=== PATIENT | male | born 1985 | race Caucasian/White ===

== ENCOUNTER 2017-12-02 20:40 | Emergency (ER) | payer SELFPAY ==
[2017-12-02 20:45] VITALS: BP 123/82
--- NOTE | 2017-12-02 20:47 | ER Report ---
History and Physical Time Seen By MD: 20:46 HPI/ROS CHIEF COMPLAINT: Alcohol intoxication HISTORY OF PRESENT ILLNESS: Patient is a 32 yo M here accompanied by police for fci clearance and ETOH exposure. Patient was well appearing, moderately intoxicated at time of arrival. Police brought the patient in for ED evaluation due to ETOH on board. Denies trauma, current pain. He is HD stable at time of evaluation, VS stable. Denies fever, chills, OLSON, chest pain, SOB, NV, abdominal pain. REVIEW OF SYSTEMS: Constitutional: No fever, no chills. Eyes: No discharge. ENT: No sore throat. Cardiovascular: No chest pain, no palpitations. Respiratory: No cough, no shortness of breath. Gastrointestinal: No abdominal pain, no vomiting. Genitourinary: No hematuria. Musculoskeletal: No back pain. Skin: No rashes. Neurological: No headache, + mild-moderate etoh intoxication Allergies: Coded Allergies: No Known Drug Allergies (Unverified , 12/02/17) Home Meds Reported Medications Buprenorphine Hcl/Naloxone Hcl (SUBOXONE 8 MG-2 MG SL FILM) 1 Each Film, 1 EACH SL QDAY, FILM 12/02/17 Constitutional Physical Exam General Appearance: The patient is alert, has no immediate need for airway protection and no signs of toxicity. + etoh intoxication Eyes: Pupils equal and round no pallor or injection. ENT, Mouth: Mucous membranes are moist. Respiratory: There are no retractions, lungs are clear to auscultation. Cardiovascular: Regular rate and rhythm. Gastrointestinal: Abdomen is soft and non tender, no masses, bowel sounds normal. Neurological: No focal deficits, moderate intoxication with ETOH Skin: Warm and dry, no rashes. Musculoskeletal: Neck is supple non tender. Extremities are nontender, nonswollen and have full range of motion. DIFFERENTIAL DIAGNOSIS: After history and physical exam differential diagnosis was considered for etoh intoxication, polysubstance abuse, trauma Medical Decision Making ED Course/Re-evaluation ED Course Patient is a well appearing, moderately intoxicated 32 yo M here for fci clearance. Patient was HD stable with stable VS at time of evaluation. Patient was able to voice understanding of circumstances, AAO x 3, NAD. Denies injury, pain, headache, CP, SOB, NVD, abdominal pain. Patient was cleared to proceed with fci with police supervision. Decision to Disposition Date: Dec 02, 2017 Decision to Disposition Time: 20:54 Depart Departure Latest Vital Signs Impression: Primary Impression: Alcohol intoxication Condition: Improved [facility] Patient Instructions: Abuse of Alcohol (ED) CARMEL YOU DO Dec 02, 2017 20:47
[2017-12-02] MEDS ORDERED: BUPR1FIL7 SL (20:49)
== END 2017-12-02 21:12 ==
LOC: ER 20:51
DX: F10.120 Alcohol abuse with intoxication, uncomplicated (principal)
CPT/HCPCS: 99281

== ENCOUNTER 2017-12-31 15:44 | Emergency (ER) | payer SELFPAY ==
[~2017-12-31 15:44] MED LIST: BUPR1FIL7 SL
[2017-12-31 16:54] LABS: PLATELET COUNT, AUTOMATED 293 K/uL (150-450)
--- NOTE | 2017-12-31 17:06 | ER Report ---
History and Physical Time Seen By MD: 15:50 Hx. of Stated Complaint: PATIENT STATES THAT HE WANTS TO DETOX; STATES THAT HE CALLED [facility] ALREADY HPI/ROS CHIEF COMPLAINT: alcohol dependence, wants detox; HISTORY OF PRESENT ILLNESS: Pt has drank etoh steadily for past year, has not tried to quit or had w/d in past, now wants to tstop. He als has hx of heroin dependence, was on suboxone and has not had for months; over past week again began injecting heroin and snorting opiates. Has had multiple drinks today and snorted morphine. Denies SI/HI; motivated to quit. REVIEW OF SYSTEMS: Constitutional: No fever, no chills. Eyes: No discharge. ENT: No sore throat. Cardiovascular: No chest pain, no palpitations. Respiratory: No cough, no shortness of breath. Gastrointestinal: No abdominal pain, no vomiting. Genitourinary: No hematuria. Musculoskeletal: No back pain. Skin: No rashes. Neurological: No headache. Remainder of the 14 system rev: Yes Allergies: Coded Allergies: No Known Drug Allergies (Unverified , 12/02/17) Home Meds Reported Medications Lisinopril (LISINOPRIL) 10 Mg Tablet, 10 MG PO QDAY, TAB 01/01/18 Buprenorphine Hcl/Naloxone Hcl (SUBOXONE 8 MG-2 MG SL FILM) 1 Each Film, 1 EACH SL QDAY, FILM 12/02/17 Reviewed Nurses Notes: Yes Hx Substance Use Disorder: Yes (HEROIN) Hx Alcohol Use: Yes (ALCOHOLISM) Constitutional Vital Sign - Last 24 Hours 12/31/17 12/31/17 12/31/17 12/31/17 15:52 16:00 16:07 16:14 Temp 97.7 Pulse 76 68 Resp 18 B/P (MAP) 131/81 (98) 131/95 (107) 131/81 Pulse Ox 95 96 O2 Delivery Room Air 12/31/17 12/31/17 12/31/17 12/31/17 16:30 17:00 17:14 17:30 Pulse ??? B/P (MAP) ???/??? (166) ???/??? (1664) ???/??? (1664) 12/31/17 12/31/17 12/31/17 12/31/17 17:44 18:14 18:44 19:14 Pulse ? Physical Exam General Appearance: The patient is alert, has no immediate need for airway protection and no signs of toxicity. Eyes: Pupils equal and round no pallor or injection. ENT, Mouth: Mucous membranes are moist. Respiratory: There are no retractions, lungs are clear to auscultation. Cardiovascular: Regular rate and rhythm, no m/r/g Gastrointestinal: Abdomen is soft and non tender, no masses, bowel sounds normal. Neurological: alert, oriented, cooperative Skin: Warm and dry, no rashes. Musculoskeletal: Neck is supple non tender. Extremities are nontender, nonswollen and have full range of motion. DIFFERENTIAL DIAGNOSIS: After history and physical exam differential diagnosis was considered for intoxication, withdrawal, suicidal, sepsis, or other emergent etiology. Medical Decision Making Data Points Result Diagram: 12/31/17 1636 12/31/17 1636 Laboratory Hematology Test 12/31/17 15:52 12/31/17 16:36 Urine Color Straw Urine Clarity Clear Urine pH 6.0 pH (4.8-9.5) Urine Specific [place] 1.004 Urine Protein Negative mg/dL (NEGATIVE) Urine Glucose (UA) Negative mg/dL (NEGATIVE) Urine Ketones Negative mg/dL (NEGATIVE) Urine Blood Negative (NEGATIVE) Urine Nitrite Negative (NEGATIVE) Urine Bilirubin Negative (NEGATIVE) Urine Urobilinogen Negative mg/dL (0.2-1.9) Urine Leukocyte Esterase Negative (NEGATIVE) Urine RBC None /HPF (0-2/HPF) Urine WBC None /HPF (0-5/HPF) Urine Squamous Epithelial Cells None /LPF (</=FEW) Urine Bacteria Negative /HPF (NONE-FEW) Urine Mucus None /HPF (NONE-FEW) Urine Opiates Screen Positive Urine Barbiturates Screen Negative Ur Tricyclic Antidepressants Screen Negative Urine Phencyclidine Screen Negative Urine Amphetamines Screen Negative Urine Benzodiazepines Screen Negative Urine Cocaine Screen Negative Urine Cannabinoids Screen Negative Red Blood Count 5.24 M/uL (4.00-5.60) Mean Corpuscular Volume 88.6 fL (80.0-96.0) Mean Corpuscular Hemoglobin 31.7 pg (26.0-33.0) Mean Corpuscular Hemoglobin Concent 35.7 g/dL (32.0-36.0) Red Cell Distribution Width 13.1 % (11.5-14.5) Mean Platelet Volume 8.7 fL (7.2-11.1) Neutrophils (%) (Auto) 53.6 % (39.4-72.5) Lymphocytes (%) (Auto) 36.9 % (17.6-49.6) Monocytes (%) (Auto) 8.1 % (4.1-12.4) Eosinophils (%) (Auto) 0.6 % (0.4-6.7) Basophils (%) (Auto) 0.8 % (0.3-1.4) Nucleated RBC Relative Count (auto) 0.0 /100WBC Neutrophils # (Auto) 6.8 K/uL (2.0-7.4) Lymphocytes # (Auto) 4.7 K/uL (1.3-3.6) Monocytes # (Auto) 1.0 K/uL (0.3-1.0) Eosinophils # (Auto) 0.1 K/uL (0.0-0.5) Basophils # (Auto) 0.1 K/uL (0.0-0.1) Nucleated RBC Absolute Count (auto) 0.01 K/uL Sodium Level 142 mmol/L (137-145) Potassium Level 3.6 mmol/L (3.5-5.0) Chloride Level 107 mmol/L (98-107) Carbon Dioxide Level 20 mmol/L (22-30) Blood Urea Nitrogen 9 mg/dl (9-21) Creatinine 0.70 mg/dl (0.66-1.25) Glomerular Filtration Rate Calc > 60.0 Random Glucose 124 mg/dl (75-110) Calcium Level 8.6 mg/dl (8.4-10.2) Total Bilirubin 0.2 mg/dl (0.2-1.3) Aspartate Amino Transf (AST/SGOT) 135 U/L (0-35) Alanine Aminotransferase (ALT/SGPT) 273 U/L (0-56) Alkaline Phosphatase 89 U/L (0-126) Total Protein 7.8 g/dl (6.3-8.2) Albumin 4.4 g/dl (3.5-5.0) Salicylates Level < 10 mg/L Salicylate Last Dose Date unk Acetaminophen Level < 10 ug/ml Serum Alcohol 158 mg/dl HIV (1&2) Antibody Negative (NEGATIVE) Chemistry Test 12/31/17 15:52 12/31/17 16:36 Urine Color Straw Urine Clarity Clear Urine pH 6.0 pH (4.8-9.5) Urine Specific [place] 1.004 Urine Protein Negative mg/dL (NEGATIVE) Urine Glucose (UA) Negative mg/dL (NEGATIVE) Urine Ketones Negative mg/dL (NEGATIVE) Urine Blood Negative (NEGATIVE) Urine Nitrite Negative (NEGATIVE) Urine Bilirubin Negative (NEGATIVE) Urine Urobilinogen Negative mg/dL (0.2-1.9) Urine Leukocyte Esterase Negative (NEGATIVE) Urine RBC None /HPF (0-2/HPF) Urine WBC None /HPF (0-5/HPF) Urine Squamous Epithelial Cells None /LPF (</=FEW) Urine Bacteria Negative /HPF (NONE-FEW) Urine Mucus None /HPF (NONE-FEW) Urine Opiates Screen Positive Urine Barbiturates Screen Negative Ur Tricyclic Antidepressants Screen Negative Urine Phencyclidine Screen Negative Urine Amphetamines Screen Negative Urine Benzodiazepines Screen Negative Urine Cocaine Screen Negative Urine Cannabinoids Screen Negative White Blood Count 12.6 k/uL (4.5-11.0) Red Blood Count 5.24 M/uL (4.00-5.60) Hemoglobin 16.6 g/dL (14.0-18.0) Hematocrit 46.5 % (42.0-52.0) Mean Corpuscular Volume 88.6 fL (80.0-96.0) Mean Corpuscular Hemoglobin 31.7 pg (26.0-33.0) Mean Corpuscular Hemoglobin Concent 35.7 g/dL (32.0-36.0) Red Cell Distribution Width 13.1 % (11.5-14.5) Platelet Count 293 K/uL (150-450) Mean Platelet Volume 8.7 fL (7.2-11.1) Neutrophils (%) (Auto) 53.6 % (39.4-72.5) Lymphocytes (%) (Auto) 36.9 % (17.6-49.6) Monocytes (%) (Auto) 8.1 % (4.1-12.4) Eosinophils (%) (Auto) 0.6 % (0.4-6.7) Basophils (%) (Auto) 0.8 % (0.3-1.4) Nucleated RBC Relative Count (auto) 0.0 /100WBC Neutrophils # (Auto) 6.8 K/uL (2.0-7.4) Lymphocytes # (Auto) 4.7 K/uL (1.3-3.6) Monocytes # (Auto) 1.0 K/uL (0.3-1.0) Eosinophils # (Auto) 0.1 K/uL (0.0-0.5) Basophils # (Auto) 0.1 K/uL (0.0-0.1) Nucleated RBC Absolute Count (auto) 0.01 K/uL Glomerular Filtration Rate Calc > 60.0 Calcium Level 8.6 mg/dl (8.4-10.2) Total Bilirubin 0.2 mg/dl (0.2-1.3) Aspartate Amino Transf (AST/SGOT) 135 U/L (0-35) Alanine Aminotransferase (ALT/SGPT) 273 U/L (0-56) Alkaline Phosphatase 89 U/L (0-126) Total Protein 7.8 g/dl (6.3-8.2) Albumin 4.4 g/dl (3.5-5.0) Salicylates Level < 10 mg/L Salicylate Last Dose Date unk Acetaminophen Level < 10 ug/ml Serum Alcohol 158 mg/dl HIV (1&2) Antibody Negative (NEGATIVE) Toxicology Test 12/31/17 15:52 12/31/17 16:36 Urine Opiates Screen Positive Urine Barbiturates Screen Negative Ur Tricyclic Antidepressants Screen Negative Urine Phencyclidine Screen Negative Urine Amphetamines Screen Negative Urine Benzodiazepines Screen Negative Urine Cocaine Screen Negative Urine Cannabinoids Screen Negative Salicylates Level < 10 mg/L Salicylate Last Dose Date unk Acetaminophen Level < 10 ug/ml Serum Alcohol 158 mg/dl Urinalysis Test 12/31/17 15:52 Urine Color Straw Urine Clarity Clear Urine pH 6.0 pH (4.8-9.5) Urine Specific [place] 1.004 Urine Protein Negative mg/dL (NEGATIVE) Urine Glucose (UA) Negative mg/dL (NEGATIVE) Urine Ketones Negative mg/dL (NEGATIVE) Urine Blood Negative (NEGATIVE) Urine Nitrite Negative (NEGATIVE) Urine Bilirubin Negative (NEGATIVE) Urine Urobilinogen Negative mg/dL (0.2-1.9) Urine Leukocyte Esterase Negative (NEGATIVE) Urine RBC None /HPF (0-2/HPF) Urine WBC None /HPF (0-5/HPF) Urine Squamous Epithelial Cells None /LPF (</=FEW) Urine Bacteria Negative /HPF (NONE-FEW) Urine Mucus None /HPF (NONE-FEW) ED Course/Re-evaluation ED Course Pt presents with request for detox; clinically sober, etoh 150's; no e/o withdrawal; will admit. Decision to Disposition Date: Dec 31, 2017 Decision to Disposition Time: 17:05 Depart Departure Latest Vital Signs Vital Signs Date Time Temp Pulse Resp B/P (MAP) Pulse Ox O2 Delivery O2 Flow Rate FiO2 12/31/17 19:14 ??? 12/31/17 17:30 ???/??? (1665) 12/31/17 16:14 96 12/31/17 16:07 97.7 18 Room Air Impression: Primary Impression: Alcohol intoxication Additional Impression: Opiate addiction Condition: Condition Unchanged Disposition: XFER TO [facility] Problem Qualifiers Primary Impression: Alcohol intoxication Complication of substance-induced condition: uncomplicated Qualified Codes: F10.920 - Alcohol use, unspecified with intoxication, uncomplicated Additional Impression: Opiate addiction Substance use status: with unspecified opioid-induced disorder Qualified Codes: F11.29 - Opioid dependence with unspecified opioid-induced disorder ORLIN LOPEZ MD Dec 31, 2017 17:06
[2018-01-01] MEDS ORDERED: LISI-362 PO (00:46)
== END 2017-12-31 19:22 ==
LOC: ER 15:49
DX: F10.920 Alcohol use, unspecified with intoxication, uncomplicated (principal); F11.29 Opioid dependence with unspecified opioid-induced disorder; Z79.899 Other long term (current) drug therapy; F19.10 Other psychoactive substance abuse, uncomplicated
CPT/HCPCS: 36415; 80305; 80320; 80329; 81001; 82040; 82247; 82310; 82374; 82435; 82565; 82947; 84075; 84132; 84155; 84295; 84443; 84450; 84460; 84520; 85025; 86703; 86803; 99284

== ENCOUNTER 2017-12-31 17:12 | Inpatient (IN) | payer SELFPAY ==
[~2017-12-31] VITALS: Ht 165.1 cm; Wt 73.9 kg
[2017-12-31] MEDS ORDERED: MAG HYD/AL HYD/SIMETH 30ML UDC PO PRN (18:00)
[2017-12-31] MEDS ORDERED: ONDANSETRON 4 MG ODT TABDP SL PRN (18:00)
[2017-12-31 20:27] VITALS: BP 132/89
[2017-12-31] MEDS ORDERED: NICOTINE INH SYSTEM 10 MG/INH INH PRN (20:40)
[2017-12-31] MEDS ORDERED: NICOTINE CARTRIDGE 1 EA PO PRN (20:40)
[2018-01-01] MEDS ORDERED: LISI-362 PO (00:46)
[2018-01-01 05:00] VITALS: BP 122/100
[2018-01-01] MEDS: MULTIVITAMINS PO SCH (08:09)
[2018-01-01] MEDS: THIAMINE HCL 100 MG TAB PO SCH (08:09)
[2018-01-01] MEDS: FOLIC ACID 1 MG TAB PO SCH (08:09)
[2018-01-01 11:20] VITALS: BP 132/88
[2018-01-01] MEDS: DIAZEPAM 10 MG TAB PO PRN ×2 (11:53→22:12)
[2018-01-01] MEDS: NICOTINE POLACRILEX 2 MG GUM PO PRN ×2 (11:53→16:59)
[2018-01-01 13:20] VITALS: BP 132/86
[2018-01-01] MEDS: LOPERAMIDE HCL 2 MG CAP PO PRN ×3 (14:51→21:34)
[2018-01-01 18:00] VITALS: BP 138/88
[2018-01-01 21:21] VITALS: BP 135/98
[2018-01-02 02:33] VITALS: BP 131/94
--- NOTE | 2018-01-02 04:09 | HISTORY AND PHYSICAL ---
DATE OF ADMISSION: December 31, 2017 DATE OF INTERVIEW: January 01, 2018 at 10:00 a.m. for this dictation. CHIEF COMPLAINT "I just want to be able to hold a job." HISTORY OF PRESENT ILLNESS This is the first ever psychiatric admission for this voluntary patient, who is a 32-year-old male who enters for alcohol detox as well as for treatment for opiate addiction. The patient reports that he has been drinking heavily for the past one year, approximately a fifth of vodka per day plus beers. He has tried to quit on his own, but develops symptoms of alcohol withdrawal and has been unsuccessful on his own. He has never had a detox before. The patient also has a history of opiate addiction. He used heroin from age 20 until age 30. During that period, he also sometimes used methadone, morphine and various opiate pills. At age 30, he developed endocarditis and was hospitalized, and at that time got started on Suboxone, which he was successful with for over a year. Two weeks ago, he ran out of his Suboxone, and in the ensuing two weeks he has used heroin and snorted OxyContin and also shot up morphine. He has continued to drink on a daily basis as noted above for the past year. The patient states that he has tired of this lifestyle and wants to get sober and get back to work. The patient denies any current problems with depression, and denies any suicidal ideation. The patient has no prior history of any seizures during alcohol withdrawal. PAST PSYCHIATRIC HISTORY The patient was sent to a residential treatment program for opiates during his twenties, but he eloped from that program after one week. He has no other past psychiatric treatment. He has never had a suicide attempt nor any history of self harm. FAMILY HISTORY No known family psychiatric history. PAST MEDICAL HISTORY At the age of 30, the patient developed endocarditis while he was in [facility]. He was sent to the local hospital in [facility]. 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 He underwent extensive surgery, including having his cervical spine treated with two cadaver bones, plates and screws. He also has a history of hypertension, history of kidney stones. SOCIAL HISTORY The patient was born in [place], [place], where he was raised. His parents were , and they when he was 19 years old. He has one younger brother. The patient dropped out of high school, but did get his GED. 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 He was homeless and on the streets for about six years during his twenties using opiates. He says his family relationships are good. He called his mother to let her know that he was hospitalized, and says she is supportive, as is his brother. He is currently living in [place] with a friend of his who he has known for many years. He left the [place] area about a year ago and came out here because he needed to get away from the contacts with whom he has abused drugs and alcohol. He got a job about two weeks ago at [employer]. LEGAL HISTORY The patient says he has been in [facility] approximately 30 times. These were usually for less than two months, and resulted from charges like possession, running away from police, stealing, all related to his addiction. Most recently he received a ticket for public intoxication here in [place], and he owes a $200 fine. He has never been charged of any violent crime. 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 He wants to pay this off so that he can get his license reinstated. SUBSTANCE ABUSE HISTORY The patient started using drugs and alcohol in high school. He says that throughout his twenties, his main drug of abuse by far was opiates. He says that he started drinking heavily only about a year ago. He does have a history of IV drug abuse. VICTIM ISSUES The patient denies any history of physical or sexual abuse. PHYSICAL EXAMINATION Please see the emergency room physician's report. Vital signs: Temperature 98.3, pulse 64, blood pressure 132/89, pulse ox is 96 on room air. LABORATORY DATA CBC is within normal limits except for a white count of 12.6, which is high. Chemistry panel is normal except for carbon dioxide low at 20, random glucose high at 124, AST high at 135, ALT high at 273. TSH is pending. Tox screen is positive for opiates. Serum alcohol is 158. Urinalysis is within normal limits. HIV test is negative. Hepatitis panel is pending. MENTAL STATUS EXAM GENERAL APPEARANCE, BEHAVIOR AND ATTITUDE: The patient is well-groomed with a neatly trimmed mendiola and healthy appearance. He is cooperative with normal psychomotor activity. Other than a slightly runny nose, there were no obvious signs of alcohol or opiate withdrawal at the time of the interview. SPEECH: Normal in rate, tone and volume. MOOD: Euthymic. AFFECT: Euthymic. THOUGHT PROCESSES: Logical and goal-directed. THOUGHT CONTENT: Negative for any homicidal ideation, suicidal ideation, auditory hallucinations, visual hallucinations or delusions. COGNITION: He was alert and fully oriented to person, place, time and situation. MEMORY: Intact for immediate, recent and remote recall. ESTIMATED INTELLIGENCE: Average, based on interview. INSIGHT AND JUDGMENT: Fair to good. DIAGNOSES PER DSM-V Alcohol use disorder, severe. Alcohol withdrawal. Opiate use disorder, severe. Opiate withdrawal. PLAN [facility] He will be maintained on a [facility] protocol using Valium for alcohol detox. We have ordered some Zofran to help with any nausea. We have elected not to use clonidine because it could mask the evidence of alcohol detox. The patient will participate in individual and group therapies. We will likely check a baseline echocardiogram since he has not had one in over two years, given his history of endocarditis. We will recheck CBC, given his elevated white count. Patient will participate in psychoeducation, groups and therapies regarding sobriety strategies and rehab. We will set him up with outpatient treatment once his detox is completed. Estimated length of stay is three to five days. MTDD
[2018-01-02 06:33] VITALS: BP 135/105
[2018-01-02] MEDS: FOLIC ACID 1 MG TAB PO SCH (07:15)
[2018-01-02] MEDS: THIAMINE HCL 100 MG TAB PO SCH (07:15)
[2018-01-02] MEDS: LOPERAMIDE HCL 2 MG CAP PO PRN (07:15)
[2018-01-02] MEDS: MULTIVITAMINS PO SCH (07:16)
[2018-01-02] MEDS: NICOTINE POLACRILEX 2 MG GUM PO PRN (07:16)
[2018-01-02 08:08] LABS: PLATELET COUNT, AUTOMATED 275 K/uL (150-450)
[2018-01-02] MEDS ORDERED: MULT-859 PO (11:30)
[2018-01-02] MEDS ORDERED: NICO-219 BC (11:31)
[2018-01-02] MEDS ORDERED: LOPE2CAP15 PO (11:31)
--- NOTE | 2018-01-03 22:15 | DISCHARGE SUMMARY ---
DATE OF ADMISSION: December 31, 2017 DATE OF DISCHARGE: January 02, 2018 Patient was seen at approximately 1000 hours on the morning of 02 January 2018 for note concerning this dictation. FINAL DIAGNOSES 1. Opiate use disorder, severe. 2. Opiate withdrawal, considered complete. 3. Alcohol use disorder, severe. 4. Alcohol withdrawal, considered complete. 5. Elevated hepatic enzymes, rule out hepatitis C. 6. Patient having ongoing social stressors that are multiple in nature. REASON FOR ADMISSION This is a very polite, cooperative, 32-year-old male who presented to the Emergency Room in a state of alcohol intoxication pending alcohol withdrawal. Patient also freely admitted to being a long-term opiate addict and currently out of all opiates. Patient requesting help with detox. Patient admitted under alcohol withdrawal diagnosis. Patient was treated on the unit with Valium for CIWA protocol. A mixture of opiate and alcohol withdrawal was seen; however, minimally significant overall. Patient was encouraged to stay another day to make sure alcohol withdrawal would certainly be complete; however, patient stating he felt well, noted not to be in need of further Valium at the time, and patient discharging to home. Patient interacting well with this provider and other treatment team staff throughout his stay and took an active roll in his treatment. PHYSICAL EXAMINATION Please see emergency room note. Notable for: GENERAL: A 32-year-old male intoxicated. VITAL SIGNS: Vital signs at time of admission, temperature 97.7, pulse 76, respiratory rate 18, blood pressure 131/81, and pulse oximetry 95% on room air. At time of discharge from [facility], vital signs indicated temperature 98.3, pulse 68, respiratory rate 16, blood pressure 135/105, and pulse oximetry 98% on room air. LABORATORY DATA CBC on January 02, 2018, unremarkable. CMP on January 02, 2018, indicated AST elevated at 89, ALT elevated at 250. Hepatitic C antibody was reactive. HIV-1 and 2 were negative. Toxicology screen upon admission positive for opiates with a serum alcohol level of 158. Urinalysis unremarkable. TSH 0.45. MENTAL STATUS EXAMINATION GENERAL APPEARANCE, BEHAVIOR, AND ATTITUDE: At time of discharge, this is a cooperative, calm, 32-year-old male making good eye contact. No psychomotor agitation or retardation. No bizarre mannerisms or ticks. No evidence of ongoing alcohol or opiate withdrawal during interview. SPEECH: Within normal limits. Regular rate, rhythm, volume, and tone. MOOD: Described as good. AFFECT: Full and bright. THOUGHT PROCESSES: Logical, goal directed. No loose associations or flight of ideas. THOUGHT CONTENT: Free of auditory or visual hallucinations, ideas of reference , thought broadcasting, delusions, obsessions, compulsions. Patient adamantly denying suicidal or homicidal ideations. SENSORIUM: Clear. COGNITION: Alert and oriented to person, place, time, and situation. MEMORY: Immediate, recent, and remote estimated intact. INTELLIGENCE: Average based on interview. INSIGHT AND JUDGMENT: Considered grossly intact in the absence of alcohol or illicit substance use and appropriate for ongoing outpatient treatment. RESULTS OF TESTING IMAGING: None. LABORATORY DATA: See above. CONSULTATIONS None. TREATMENT Patient received medications, participated in individual and group therapy. HOSPITAL COURSE Patient was very polite and cooperative throughout his stay. Patient's alcohol and opiate withdrawal was considered minimal to moderate in nature and treated to completion. Patient took an active role in his treatment. Patient did not want to return to the use of any opiates or alcohol at time of discharge. CONDITION OF PATIENT ON DISCHARGE Stable, considered minimal risk to himself or others and appropriate for outpatient care. DISPOSITION Patient discharged to home. He would follow up with outpatient treatment as scheduled. Patient agreed to abstain from alcohol, acetaminophen, and Tylenol- containing products, abstain from all opiates. He would repeat his CMP and a CBC in one month with outpatient provider. He would follow up with confirmatory hepatitis C RNA titre with outpatient provider as well. Crisis line was given should symptoms return. DISCHARGE MEDICATIONS 1. Multivitamin with minerals daily. 2. Imodium as needed p.r.n. for loose stool. 3. [id number] nicotine replacement as needed. Risks, benefits, and alternatives of above discharge plan were discussed. Informed consent was given to proceed with above discharge plan by this competent patient. WILLIAN
== END 2018-01-02 12:17 | disposition home or self-care (01) | DRG 897 ==
LOC: BHS 17:12
PROVIDERS: ADMIT Psychiatry & Neurology Psychiatry; ATTEND Psychiatry & Neurology Psychiatry
DX: F11.23 Opioid dependence with withdrawal (principal); F10.230 Alcohol dependence with withdrawal, uncomplicated; Y90.6 Blood alcohol level of 120-199 mg/100 ml
CPT/HCPCS: 36415; 82040; 82247; 82310; 82374; 82435; 82565; 82947; 83735; 84075; 84132; 84155; 84295; 84450; 84460; 84520; 85025

== ENCOUNTER 2018-01-04 22:59 | Emergency (ER) | payer SELFPAY ==
[~2018-01-04 22:59] MED LIST changes: +LISI-362 PO; +LOPE2CAP15 PO; +MULT-859 PO; +NICO-219 BC
[2018-01-04 23:00] VITALS: BP 131/108
--- NOTE | 2018-01-04 23:01 | ER Report ---
History and Physical Time Seen By MD: 23:00 HPI/ROS CHIEF COMPLAINT: long term clearance HISTORY OF PRESENT ILLNESS: Pt here for long term clearance. Pt is noncooperative. Clinically intoxicated. Slurred words and alcohol on breath. PT swearing at me, nursing staff and both officers. Pt states that "i don't know why i'm being fucking arrested". PT denies any current medical problems. REVIEW OF SYSTEMS: limited due to pt is uncooperative. Allergies: Coded Allergies: No Known Drug Allergies (Unverified , 12/02/17) Home Meds Reported Medications Nicotine Polacrilex (NICORETTE) 2 Mg Gum, 2 MG BC PRN Y for NICOTINE REPLACEMENT , GUM 01/02/18 Loperamide HCl (Imodium A-D) 2 Mg Capsule, 2 MG PO PRN Y for DIARRHEA 01/02/18 Multivits,Ca,Minerals/Iron/Fa (THERA-M TABLET) 1 Each Tablet, 1 EACH PO DAILY 01/02/18 Discontinued Reported Medications Lisinopril (LISINOPRIL) 10 Mg Tablet, 10 MG PO QDAY, TAB 01/01/18 Buprenorphine Hcl/Naloxone Hcl (SUBOXONE 8 MG-2 MG SL FILM) 1 Each Film, 1 EACH SL QDAY, FILM 12/02/17 Past Medical/Surgical History Pmhx: alcohol and opoid abuse, kidney stones Pshx: unknown Reviewed Nurses Notes: Yes Old Medical Records Reviewed: Yes Hx Smoking: Yes Smoking Status: Heavy Tobacco Smoker Exposure to Second Hand Smoke?: Yes Hx Substance Use Disorder: Yes (HEROIN) Hx Alcohol Use: Yes Constitutional Vital Sign - Last 24 Hours 01/04/18 23:00 Temp 98.5 Pulse 111 Resp 16 B/P (MAP) 131/108 Pulse Ox 94 O2 Delivery Room Air Physical Exam General Appearance: The patient is alert, has no immediate need for airway protection and no signs of toxicity. Eyes: Pupils equal and round no pallor or injection, EOMI ENT: no pharyngeal erythema or exudates, Mucous membranes are moist, TM are nl b/l, neg hemotympanums Respiratory: There are no retractions, lungs are clear to auscultation. Cardiovascular: Regular rate and rhythm. pulses are equal and symmetrical Gastrointestinal: Abdomen is soft and non tender, no masses, bowel sounds normal, no guarding, no rigidity or rebound Neurological: Cranial nerves II-XII grossly intact, Skin: Warm and dry Musculoskeletal: Neck is supple non tender, unable to check range of motion on upper extremities due to pt is hand cuffed and not cooperative to remove. Pt is ambulatory and appears to be moving lower extremities without difficulty. no deformity was noted to upper or lower extremities DIFFERENTIAL DIAGNOSIS: After history and physical exam differential diagnosis was considered for acute alcohol intoxication Medical Decision Making ED Course/Re-evaluation ED Course PT is going to long term directly from the emergency room Decision to Disposition Date: Jan 04, 2018 Decision to Disposition Time: 23:12 Depart Departure Latest Vital Signs Vital Signs Date Time Temp Pulse Resp B/P (MAP) Pulse Ox O2 Delivery O2 Flow Rate FiO2 01/04/18 23:00 98.5 111 16 131/108 94 Room Air Impression: Primary Impression: Alcohol intoxication Condition: Condition Unchanged Disposition: [facility] TO CORRECTION/CORRECTIONAL F Departure Forms: ER Transition Record, Medications Reconciliation, Patient Portal Information Patient Instructions: Alcohol Intoxication (ED), GENERAL ER DISCHARGE INSTRUCTIONS Additional Instructions: You are cleared to go to long term. Follow up with your doctor as needed Problem Qualifiers Primary Impression: Alcohol intoxication Complication of substance-induced condition: uncomplicated Qualified Codes: F10.920 - Alcohol use, unspecified with intoxication, uncomplicated ESTEVAN WOODS DO Jan 04, 2018 23:01
== END 2018-01-04 23:12 ==
LOC: ER 23:04
DX: Z02.89 Encounter for other administrative examinations (principal); F10.920 Alcohol use, unspecified with intoxication, uncomplicated
CPT/HCPCS: 99281

== ENCOUNTER 2018-08-10 13:03 | Emergency (ER) | payer SELFPAY ==
--- NOTE | 2018-08-10 13:32 | ER Report ---
History and Physical Time Seen By MD: 13:31 Hx. of Stated Complaint: PT HAS BEEN DEALING WITH A TOOTH ABSCESS FOR 6 WEEKS, WAS SEEN IN [place] AND STARTED ON CLINDAMYCIN WHICH HELPED, BUT BEFORE HE COULD GET IN TO SEE ANYONE ELSE THE SWELLING AND PAIN HAS STARTED AGAIN. 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 ONLY USES OCC NOW (HEROIN & METH) HPI/ROS No current IVDA. Known tooth abscess. Had been on Clindamycin with some relief. Now pain has returned. Able to take PO. No trismus. No chest pain or SOB. No fever. No change in voice. Remainder of the 14 system rev: Yes Allergies: Coded Allergies: No Known Drug Allergies (Unverified , 12/02/17) Home Meds Active Scripts Ibuprofen (IBUPROFEN) 600 Mg Tablet, 1 TAB PO Q6H for 10 Days, #30 TAB Prov:LUIS EDUARDO LOPEZ MD 08/10/18 Clindamycin Hcl (CLINDAMYCIN HCL) 300 Mg Capsule, 300 MG PO Q6H, #40 CAPSULE Prov:LUIS EDUARDO LOPEZ MD 08/10/18 Reviewed Nurses Notes: Yes Old Medical Records Reviewed: Yes Hx Smoking: Yes Smoking Status: Heavy Tobacco Smoker Exposure to Second Hand Smoke?: Yes Hx Substance Use Disorder: Yes (HEROIN EVERY COUPLE MONTHS) Hx Alcohol Use: Yes (2 X WEEKLY, ONE PINT OF VODKA) Constitutional Physical Exam General Appearance: The patient is alert, has no immediate need for airway protection and no current signs of toxicity. Eyes: Pupils equal and round no injection. Mouth: No ludwigs, multiple dental caries, left upper molar swelling and TTP. No obvious abscess. Respiratory: Chest is non tender, lungs are clear to auscultation. Cardiac: regular rate and rhythm Medical Decision Making ED Course/Re-evaluation ED Course No evidence of endocarditis or sepsis. No fever. No trismus. Uncomplicated dental caries/abscess. Will place back on Clindamycin. Dental follow up scheduled for extraction and drainage of abscess. Decision to Disposition Date: Aug 10, 2018 Decision to Disposition Time: 15:02 Depart Departure Latest Vital Signs Impression: Primary Impression: Dental abscess Condition: Improved Disposition: HOME OR SELF-CARE New Scripts Ibuprofen (IBUPROFEN) 600 Mg Tablet 1 TAB PO Q6H for 10 Days, #30 TAB Prov: LUIS EDUARDO LOPEZ MD 08/10/18 Clindamycin Hcl (CLINDAMYCIN HCL) 300 Mg Capsule 300 MG PO Q6H, #40 CAPSULE Prov: LUIS EDUARDO LOPEZ MD 08/10/18 Patient Instructions: Dental Abscess (ED) Additional Instructions: YOU HAVE AN APPOINTMENT WITH [facility] FOR TOOTH REMOVAL ON AUGUST 16 AT 0830. IF YOU HAVE ANY QUESTIONS, CALL THE DENTAL CLINIC AT [phone] LUIS EDUARDO LOPEZ MD Aug 10, 2018 13:32
[2018-08-10] MEDS ORDERED: KETOROLAC 60 MG/2 ML VIAL IM ONE (14:20)
[2018-08-10] MEDS ORDERED: CLINDAMYCIN 150 MG CAP PO ONE (14:20)
[2018-08-10] MEDS ORDERED: CLIN300C99 PO (15:05)
[2018-08-10] MEDS ORDERED: IBUP600T22 PO (15:05)
[2018-08-10 15:17] VITALS: BP 119/81
== END 2018-08-10 15:14 | disposition home or self-care (01) ==
LOC: ER 13:35
DX: K04.7 Periapical abscess without sinus (principal); F17.200 Nicotine dependence, unspecified, uncomplicated
CPT/HCPCS: 96372; 99283; J1885

== ENCOUNTER → 2018-10-09 | Outpatient (REF) ==
[~2018-10-09] MED LIST changes: +CLIN300C99 PO; +IBUP600T22 PO
--- NOTE | 2018-10-09 09:34 | EKG ---
FACILITY: [facility] PATIENT NAME: NOELLE ROCK : [id number] MR: [id number] V: [id number] EXAM DATE: ORDERING PHYSICIAN: SHERRY MCMANUS TECHNOLOGIST: FLAVIA Neville Reason : IRREG. HR Blood Pressure : / mmHG Vent. Rate : 063 BPM Atrial Rate : 063 BPM P-R Int : 154 ms QRS Dur : 108 ms QT Int : 412 ms P-R-T Axes : 011 067 049 degrees QTc Int : 421 ms Normal sinus rhythm Normal ECG No previous ECGs available Confirmed by JORDY ROBLES ([id number]) on 10/09/2018 6:34:06 PM Referred By: MARIETTA Confirmed By:JORDY ROBLES
--- NOTE | 2018-10-09 10:03 | RADIOLOGY IMAGING REPORT ---
FACILITY: [facility] - [place] PATIENT NAME: Aki Wong : 1985 MR: [id number] V: [id number] EXAM DATE: ORDERING PHYSICIAN: SHERRY MCMANUS TECHNOLOGIST: Location: [facility] Patient: Aki Wong : 1985 Visit/Account:[id number] Date of Sevice: 10/09/2018 Focused right upper quadrant ultrasound HISTORY: Hepatitis C. COMPARISON: None available. Findings: Standard right upper quadrant abdominal ultrasound is performed. Pancreas: Visualized portions of the pancreas are unremarkable. Liver: Negative. Gallbladder and biliary system: No gallbladder stone or sludge. No wall thickening, pericholecystic f luid, or sonographic Ta's. The common bile duct is not dilated. Aorta and IVC: The visualized aorta and IVC are patent. Kidneys: The right kidney measures 10.9 x 5.5 x 4.4 cm. Normal echogenicity. No hydronephrosis. Ascites: None. IMPRESSION: Normal right upper quadrant ultrasound. Report Dictated By: Stanley Retana MD at 10/09/2018 9:57 AM Report E-Signed By: Stanley Retana MD at 10/09/2018 9:58 AM WSN:[id number]
== END ==
LOC: US 10-03 01:27
PROVIDERS: ATTEND Nurse Practitioner
DX: R00.8 Other abnormalities of heart beat (principal); B18.2 Chronic viral hepatitis C
CPT/HCPCS: 76705; 93005